=== PATIENT | female | born 1990 ===

== ENCOUNTER 2016-03-25 13:28 | Emergency (ER) | payer MEDICAID ==
[~2016-03-25] VITALS: Ht 160 cm; Wt 86.4 kg
[~2016-03-25 13:28] MED LIST: ASC500 PO; DSS100 PO; FERR89TA PO; FLE10 PO; IBUP-1152 PO; PNV1TABL57 PO; TYL325 PO; ZAN150T
[2016-03-25 13:30] VITALS: BP 122/79; PULSE 120; RESP 20; O2SAT 97
--- NOTE | 2016-03-25 13:52 | ED.REPORT ---
HPI-Dyspnea / Wheezing Date of Service Mar 25, 2016 ED Provider: Harmeet Contreras Patient is a 25 year old female who presents to the ED complaining of a productive cough onset 3 days ago that was exacerbated last night. Associated symptoms include chest pain upon coughing and deep breathing. She denies vomiting, diarrhea, dysuria, abdominal pain, or any other symptoms. She reports that she has not eaten in the past 4-5 days but is drinking some fluids. Nursing Notes Stated Complaint: CHEST PAIN/FEVER Chief Complaint: Respiratory Distress Nursing Notes Reviewed: Yes Allergies: Coded Allergies: Penicillins (Verified Allergy, Intermediate, Hives, 09/02/15) azithromycin (Verified Allergy, Intermediate, Hives, 09/02/15) amoxicillin (Verified Allergy, Unknown, Hives, 09/02/15) Scheduled Acetaminophen-Expunged Drug, Do Not Renew! (Tylenol-Expunged Drug, Do Not Renew! ) 325 Mg Tablet 325-650 MG PO Q6HP Ascorbic Acid-Expunged Drug, Do Not Renew! (Vitamin C-Expunged Drug, Do Not Renew!) 500 Mg Tablet 500 MG PO DAILYWM Cyclobenzaprine-Expunged Drug, Do Not Renew! (Flexeril-Expunged Drug, Do Not Renew!) 10 Mg Tablet 10 MG PO DAILYP FOR MUSCLE SPASM Docusate Sod-Expunged Drug, Do Not Renew! (Docusate Sod-Expunged Drug, Do Not Renew!) 100 Mg Capsule 100 MG PO BID Ferrous Fumarate-Expunged Drug, Do Not Renew! (Ferrous Fumarate-Expunged Drug, Do Not Renew!) 89 Mg Tablet 150 MG PO BID PNV CMB#95/FERROUS FUMARATE/FA-Expunged Drug, (-Expunged Drug, Do Not Renew!) 1 Each Tablet 1 EACH PO DAILY Ranitidine 150 MG Tablet (Zantac 150 MG Tablet) 150 Mg Tab 1-3XD Scheduled PRN IBUPROFEN-Expunged Drug, Do Not Renew! (IBUPROFEN-Expunged Drug, Do Not Renew!) 800 Mg Tablet 800 MG PO Q6H PRN PRN Naproxen (Naproxen) 500 Mg Tab 500 MG PO BID PRN PRN For Pain General Time Seen by MD: 13:51 Chief Complaint Cough Hx Obtained From: Patient Arrived By: Walk-in Past Medical History Past Medical History Notes: States previously healthy Past Medical History Chronic back pain Past Surgical History oral surgery Hx R arm ORIF Smoking History Never Smoker Social History Alcohol Use: Denies alcohol use Drug Use: Denies drug use Occupation lives with and kids, no work or school Ambulatory Status Independent Review of Systems Respiratory: Reports: Pleuritic pain, Prod cough, clear Cardiovascular: Reports: Chest pain (with cough) Complete sys rev & neg: except as marked. GI: Denies: Abdominal pain, Diarrhea, Vomiting Female: Denies: Dysuria Physical Exam Initial Vital Signs Vital Signs (First) Date Time Temp Pulse Resp B/P Pulse Ox O2 Delivery O2 Flow Rate FiO2 03/25/16 13:30 36.8 120 20 122/79 97 Room Air Initial VS: Reviewed Head / Eyes: Atraumatic, Normocephalic Abdomen / GI: Soft, Non-tender Skin: Warm, Dry Neurologic: Alert, Oriented, Nonfocal Psychiatric: Mood/affect normal, Behavior normal, Normal thought content General/Constitutional: Awake, Alert Distress / Hydration: Positive: Dehydration mild Neck: Full range of motion Respiratory / Chest: No respiratory distress Rhonchi in R posterior lung field. Cardiovascular: Heart rate NL, Regular rhythm, Heart sounds NL Mouth: Positive: Mucous membranes dry Interpretation & Diagnostics Lab Results Interpretation Result Diagram: 03/25/16 1445 03/25/16 1445 Test 03/25/16 14:45 White Blood Count 9.6th/mm3 (3.8-10.1) Red Blood Count 4.78mil/mm3 (3.90-5.20) Hemoglobin 13.4g/dL (12.0-15.6) Hematocrit 40.2% (35.0-46.0) Mean Corpuscular Volume 84.1fL (81-100) Mean Corpuscular Hemoglobin 28.0pg (27.0-35.0) Mean Corpuscular Hemoglobin Concent 33.3% (32.0-37.0) Red Cell Distribution Width 14.8% (12.3-15.4) Platelet Count 340bil/L (150-400) Neutrophils (%) (Auto) 76.9% (40-74) Lymphocytes (%) (Auto) 12.6% (14-46) Monocytes (%) (Auto) 9.6% (4-12) Eosinophils (%) (Auto) 0.5% (0-5) Basophils (%) (Auto) 0.2% (0-3) Sodium Level 135mEq/L (134-144) Potassium Level 3.3mEq/L (3.5-5.2) Chloride Level 99mEq/L (97-108) Carbon Dioxide Level 24mmol/L (18-29) Blood Urea Nitrogen 8mg/dL (6-20) Creatinine 0.69mg/dL (0.57-1.00) Estimat Glomerular Filtration Rate 148mL/min (>59) Glucose Level 109mg/dL (60-99) Lactic Acid Level 0.6mmol/L (0.4-2.0) Calcium Level 8.7mg/dL (8.5-10.1) Magnesium Level 2.0mg/dL (1.6-2.6) Total Bilirubin 0.7mg/dL (0.0-1.2) Aspartate Amino Transf (AST/SGOT) 21U/L (0-50) Alanine Aminotransferase (ALT/SGPT) 9U/L (0-32) Alkaline Phosphatase 62U/L (25-150) Total Protein 7.7g/dL (6.4-8.4) Albumin 3.8g/dL (3.4-5.0) Lab Results Interpretation: FLU NEG lactic acid 0.6 ECG Interpretation ECG Interpretation: sinus tachy rate 110 unchanged from prior Time: 14:39 Interpreted by: ED physician X-Ray Chest Interpretation Chest Xray Interpretation: IMPRESSION: No acute cardiopulmonary disease process. Dictated by: Negrita Yanes MD, PhD on 03/25/2016 at 14:58 Approved by: Negrita Yanes MD, PhD on 03/25/2016 at 14:58 View: AP & lat Interpretation / Wet Read by: Interpret - Radiologist Re-Eval/Medical Decision Med Decision/Clinical Course tachycardia, dry mouth, benign abd exam. Do not suspect pneumonia or influenza based on exams. Patient appears dehydrated and will receive IV fluids. Will plan to discharge her with anti-inflammatories and strict return and follow-up precautions. Re-Evaluation/Progress : Time of Eval: 14:58 Re-Evaluation/Progress Note: Rechecked patient. Discussed lab results and plan for discharge. Patient understands and agrees with plan. All questions addressed at this time. Counseled Regarding: Diagnosis, Lab results, Need for follow-up, When/why to return to ED Discharge & Departure Impression: Primary Impression: Upper respiratory infection Disposition: Home Discharge Condition All VS Reviewed: Yes Condition: Stable Patient Instructions: Upper Respiratory Infection (ED) Additional Instructions: Your x-rays negative for pneumonia and it does not appear to have influenza based on your nasal swab. Continue to stay hydrated. Use naproxen as prescribed. Call your regular doctor in the morning for repeat evaluation. Return to ER as needed for worsening symptoms. Referrals: [facility] Scribe Attestation Portions of this note were transcribed by Farzaneh Aguilera. I, Dr. Contreras personally performed the history, physical exam and medical decision-making; I reviewed and confirmed the accuracy of the information in the transcribed note. Signed by: Farzaneh Aguilera 03/25/16, 7143 copies to: [facility] Harmeet Contreras DO Mar 25, 2016 13:52 FARZANEH AGUILERA Mar 25, 2016 14:09
[2016-03-25] MEDS ORDERED: 0.9% Sodium Chloride 1,000 ML IV ONE (14:00)
[2016-03-25] MEDS ORDERED: Ondansetron 2 mg/mL 2 mL Inj IV PRN (14:00)
[2016-03-25 14:49] LABS: BASOPHILS % (AUTO) 0.2 % (0-3); EOSINOPHILS % (AUTO) 0.5 % (0-5); MONOCYTES % (AUTO) 9.6 % (4-12); Mean Corpuscular Volume 84.1 fL (81-100); NEUTROPHILS % (AUTO) 76.9 % (40-74); Platelet Count 340 bil/L (150-400)
--- NOTE | 2016-03-25 15:00 | DRSVH ---
PROCEDURE: X-RAY CHEST, TWO VIEWS ([id number]) INDICATIONS: cough TECHNIQUE: 2 views of the chest were acquired. COMPARISON: [facility], CR, CHEST 2VW, 06/01/2008, 23:15. FINDINGS: Surgical changes and devices: None. Lungs and pleura: No pleural effusions or pneumothorax. Lungs are clear. Mediastinum: Mediastinal contours are normal. Heart size is normal. Bones and chest wall: No suspicious bony abnormalities. Soft tissues appear unremarkable. IMPRESSION: No acute cardiopulmonary disease process. Dictated by: Negrita Yanes MD, PhD on 03/25/2016 at 14:58 Approved by: Negrita Yanes MD, PhD on 03/25/2016 at 14:58
[2016-03-25] MEDS ORDERED: oxyCODONE-Acetamin 5-325 mg Tablet PO ONE (15:20)
[2016-03-25] MEDS ORDERED: NPR500T PO (15:21)
[2016-03-25 15:22] VITALS: BP 106/60; PULSE 98; RESP 18; O2SAT 99
[2016-03-25 15:31] VITALS: BP 106/60; PULSE 98; RESP 18; O2SAT 99
== END 2016-03-25 15:21 | disposition home or self-care (01) ==
LOC: SED 13:28
DX: J06.9 Acute upper respiratory infection, unspecified (principal); R07.9 Chest pain, unspecified; Z88.0 Allergy status to penicillin; Z88.1 Allergy status to other antibiotic agents
CPT/HCPCS: 71020; 80053; 83605; 83735; 85025; 87804; 96361; 96374; 96375; 99285; J2405; J7030

== ENCOUNTER 2016-05-21 13:49 | Emergency (ER) | payer MEDICAID, OTHER ==
[~2016-05-21] VITALS: Ht 160 cm; Wt 86.4 kg
[~2016-05-21 13:49] MED LIST changes: +NPR500T PO
[2016-05-21 13:54] VITALS: BP 150/96; PULSE 69; RESP 18; O2SAT 97
--- NOTE | 2016-05-21 14:22 | ED.REPORT ---
HPI-Abd Pain F Under 40 Date of Service May 21, 2016 ED Provider: Virgilio Theodore MD A 25 year old female presents to the ED complaining of severe abdominal and lower back pain onset last night. She felt fine before onset. Associated symptoms include nausea and hourly vomiting. She has not taken any medication to treat the pain. She denies any fever or diarrhea. She had a BM yesterday, but none today. She reports having no sweat glands. She denies any history of appendectomy, cholecystectomy, , or any other abdominal surgery. She does not take any prescription medications or regular pain medication. She reports allergy to penicillin. Nursing Notes Stated Complaint: ABDOMINAL PAIN Chief Complaint: Female Abdominal Pain Nursing Notes Reviewed: Yes Allergies: Coded Allergies: Penicillins (Verified Allergy, Intermediate, Hives, 09/02/15) azithromycin (Verified Allergy, Intermediate, Hives, 09/02/15) amoxicillin (Verified Allergy, Unknown, Hives, 09/02/15) Scheduled Acetaminophen-Expunged Drug, Do Not Renew! (Tylenol-Expunged Drug, Do Not Renew! ) 325 Mg Tablet 325-650 MG PO Q6HP Ascorbic Acid-Expunged Drug, Do Not Renew! (Vitamin C-Expunged Drug, Do Not Renew!) 500 Mg Tablet 500 MG PO DAILYWM Cyclobenzaprine-Expunged Drug, Do Not Renew! (Flexeril-Expunged Drug, Do Not Renew!) 10 Mg Tablet 10 MG PO DAILYP FOR MUSCLE SPASM Docusate Sod-Expunged Drug, Do Not Renew! (Docusate Sod-Expunged Drug, Do Not Renew!) 100 Mg Capsule 100 MG PO BID Ferrous Fumarate-Expunged Drug, Do Not Renew! (Ferrous Fumarate-Expunged Drug, Do Not Renew!) 89 Mg Tablet 150 MG PO BID PNV CMB#95/FERROUS FUMARATE/FA-Expunged Drug, (-Expunged Drug, Do Not Renew!) 1 Each Tablet 1 EACH PO DAILY Ranitidine 150 MG Tablet (Zantac 150 MG Tablet) 150 Mg Tab 1-3XD Scheduled PRN Hydrocodone-Acetaminophen 5-325 mg (Hydrocodone-Acetaminophen 5-325 mg) 1 Each Tablet 1-2 TABLET PO Q4H PRN PRN For Pain IBUPROFEN-Expunged Drug, Do Not Renew! (IBUPROFEN-Expunged Drug, Do Not Renew!) 800 Mg Tablet 800 MG PO Q6H PRN PRN Naproxen (Naproxen) 500 Mg Tab 500 MG PO BID PRN PRN For Pain Ondansetron ODT (Zofran ODT) 4 Mg Tablet 4 MG PO Q4H PRN PRN For Nausea General Time Seen by MD: 14:20 Chief Complaint Abdominal pain Hx Obtained From: Patient Arrived By: Walk-in Sudden in Onset?: No Onset Occurred: Yesterday (Last night) Location: : Abdomen upper Severity: Current: Severe Severity: Maximum: Severe Recent Healthcare: Recent doctor visit Similar Sx Previous: No Past Medical History Past Medical History Notes: States previously healthy Past Medical History Chronic back pain Has no sweat glands. Penicillin allergy. Past Surgical History oral surgery Hx R arm ORIF Smoking History Never Smoker Social History Alcohol Use: Denies alcohol use Drug Use: Denies drug use Occupation lives with and kids, no work or school Ambulatory Status Independent Review of Systems Review of Systems Note: Lower back pain. Constitutional: Denies: Fever GI: Reports: Abdominal pain, Denies: Diarrhea Complete sys rev & neg: except as marked. Physical Exam Initial Vital Signs Vital Signs (First) Date Time Temp Pulse Resp B/P Pulse Ox O2 Delivery O2 Flow Rate FiO2 05/21/16 13:54 36.9 69 18 150/96 97 Room Air General/Constitutional: Awake, Alert Respiratory / Chest: Atraumatic, Breath sounds NL, Breath sounds = bilat, No respiratory distress, No rales, No rhonchi Cardiovascular: Heart rate NL, Regular rhythm, Heart sounds NL, No gallop, No murmurs, No rubs Tenderness/Guarding/Rebound: Positive: Tender LUQ..., Tender RUQ... Upper abdominal tenderness with some guarding. No lower abdominal tenderness. Back: Atraumatic, Full range of motion Head / Eyes: Atraumatic, Normocephalic, PERRL, EOMI ENT: Atraumatic, Airway patent, Mucous membranes moist Skin: Atraumatic, Color NL, No rash, Warm, Dry Neurologic: Oriented X3, Speech NL Neck: Atraumatic, Full range of motion Upper Extremity / MS: Atraumatic, Full range of motion Lower Extremity / Pelvis / MS: Atraumatic, Full range of motion Interpretation & Diagnostics Lab Results Interpretation Result Diagram: 05/21/16 1431 05/21/16 1431 Test 05/21/16 14:31 White Blood Count 14.4th/mm3 (3.8-10.1) Red Blood Count 5.14mil/mm3 (3.90-5.20) Hemoglobin 14.5g/dL (12.0-15.6) Hematocrit 42.8% (35.0-46.0) Mean Corpuscular Volume 83.3fL (81-100) Mean Corpuscular Hemoglobin 28.2pg (27.0-35.0) Mean Corpuscular Hemoglobin Concent 33.9% (32.0-37.0) Red Cell Distribution Width 14.7% (12.3-15.4) Platelet Count 522bil/L (150-400) Neutrophils (%) (Auto) 89.8% (40-74) Lymphocytes (%) (Auto) 6.8% (14-46) Monocytes (%) (Auto) 3.0% (4-12) Eosinophils (%) (Auto) 0% (0-5) Basophils (%) (Auto) 0.1% (0-3) Sodium Level 139mEq/L (134-144) Potassium Level 3.8mEq/L (3.5-5.2) Chloride Level 101mEq/L (97-108) Carbon Dioxide Level 24mmol/L (18-29) Blood Urea Nitrogen 5mg/dL (6-20) Creatinine 0.65mg/dL (0.57-1.00) Estimat Glomerular Filtration Rate 159mL/min (>59) Glucose Level 143mg/dL (60-99) Calcium Level 9.2mg/dL (8.5-10.1) Magnesium Level 2.0mg/dL (1.6-2.6) Total Bilirubin 0.8mg/dL (0.0-1.2) Aspartate Amino Transf (AST/SGOT) 15U/L (0-50) Alanine Aminotransferase (ALT/SGPT) 10U/L (0-32) Alkaline Phosphatase 81U/L (25-150) Total Protein 7.9g/dL (6.4-8.4) Albumin 4.6g/dL (3.4-5.0) Lipase 18U/L (13-60) Hold Rausch Top Tube Received (Received) Discharge & Departure Primary Impression: Abdominal pain Abdominal location: upper abdomen Qualified Code: R10.10 - Upper abdominal pain, unspecified Disposition: Home Patient Instructions: Acute Abdominal Pain (ED) Additional Instructions: No dangerous cause for this abdominal pain is discovered today. I suspect that you likely have some sort of a viral infection in your gut causing severe crampiness and nausea. For the next one or 2 days, I recommend ondansetron as needed for nausea and hydrocodone/APAP as needed for pain. Follow-up Saturday if not significantly improved, sooner if worse. Referrals: [facility] (PCP) Scribe Attestation Portions of this note were transcribed by Alex Guthrie and Moon De. I, , personally performed the history, physical exam, and medical decision-making: I reviewed and confirmed the accuracy for the information in the transcribed note. Signed by: Alex Guthrie and chacha Huggins, 05/21/16 1816. Virgilio Theodore MD May 21, 2016 14:22 Alex Guthrie May 21, 2016 16:36 Moon De May 21, 2016 18:22
[2016-05-21 14:34] LABS: BASOPHILS % (AUTO) 0.1 % (0-3); EOSINOPHILS % (AUTO) 0 % (0-5); Mean Corpuscular Hemoglobin 28.2 pg (27.0-35.0); Mean Corpuscular Volume 83.3 fL (81-100); NEUTROPHILS % (AUTO) 89.8 % (40-74); Platelet Count 522 bil/L (150-400)
[2016-05-21] MEDS ORDERED: HYDROcodone-APAP 5-325 mg Tablet PO ONE (15:00)
[2016-05-21] MEDS ORDERED: HYDROmorphone 0.5 mg/0.5 mL iSecure Syringe IVPUSH PRN (15:10)
[2016-05-21] MEDS ORDERED: Acetaminophen IV 1,000 MG in IV Premix 1 EACH IV ONE (15:10)
[2016-05-21] MEDS: Ondansetron 2 mg/mL 2 mL Inj IVPUSH PRN ×2 (15:19→17:18)
[2016-05-21] MEDS ORDERED: 0.9% Sodium Chloride 1,000 ML IV ONE (15:25)
[2016-05-21] MEDS ORDERED: HYDROmorphone 1 mg/mL Inj IVPUSH ONE ×2 (16:55→18:30)
--- NOTE | 2016-05-21 18:22 | DRSVH ---
PROCEDURE: CT ABDOMEN AND PELVIS WITH CONTRAST ([id number]) INDICATIONS: abd pain, upper TECHNIQUE: After the administration of intravenous contrast, 5 mm thick sections acquired from the diaphragm to the symphysis. 5 mm coronal and sagittal reformats were acquired. For radiation dose reduction, the following was used: automated exposure control, adjustment of mA and/or kV according to patient siz e. COMPARISON: None. FINDINGS: Image quality: Excellent. ABDOMEN: Lung bases: Lung bases are clear. Heart size is normal. Solid organs: Liver and spleen are normal in size and enhancement. Gallbladder negative. Biliary s ystem is non dilated. Pancreas enhances normally. No adrenal nodules. Kidneys demonstrate normal s ize and enhancement, without hydronephrosis. Peritoneum and bowel: Bowel loops demonstrate normal wall thickness and caliber. No free fluid or a ir. Appendix normal. Rectum decompressed and otherwise unremarkable. No acute diverticulitis identif ied. Nodes and vessels: No retroperitoneal or mesenteric adenopathy by size criteria. Aorta and inferior vena cava are normal in size. Miscellaneous: No ventral hernias. PELVIS: Genitourinary: The bladder decompressed otherwise unremarkable Miscellaneous: No inguinal hernias or adenopathy. Bones: No suspicious bony lesions. No vertebral body compression fractures. IMPRESSION: No acute abnormality. Normal appendix. Normal gallbladder Dictated by: Noel Irene M.D. on 05/21/2016 at 18:15 Approved by: Noel Irene M.D. on 05/21/2016 at 18:20
[2016-05-21] MEDS ORDERED: Pantoprazole 4 mg/mL 10 mL Inj IVPUSH ONE (18:30)
[2016-05-21] MEDS ORDERED: MetoCLOpramide 5 mg/mL 2 mL Inj IVPUSH ONE (18:30)
[2016-05-21] MEDS ORDERED: ONDA4TAB9 PO (18:49)
[2016-05-21] MEDS ORDERED: HYDR-4003 PO (18:49)
[2016-05-21] MEDS ORDERED: _Ondansetron ODT 4 mg Tablet PO PRN (19:20)
[2016-05-21 19:25] VITALS: BP 125/71; PULSE 87; RESP 16; O2SAT 96
== END 2016-05-21 20:05 | disposition home or self-care (01) ==
LOC: SED 13:49
DX: R10.11 Right upper quadrant pain (principal); R10.12 Left upper quadrant pain; M54.5 Low back pain; R11.2 Nausea with vomiting, unspecified; Z88.0 Allergy status to penicillin; Z88.1 Allergy status to other antibiotic agents
CPT/HCPCS: 36415; 74177; 80053; 83690; 83735; 85025; 96361; 96374; 96375; 96376; 99285; J0131; J1170; J2405; J2765; J7030; Q9967

== ENCOUNTER 2016-05-27 15:15 | Emergency (ER) | payer MEDICAID, OTHER ==
[~2016-05-27] VITALS: Ht 160 cm; Wt 86.4 kg
[~2016-05-27 15:15] MED LIST changes: +HYDR-4003 PO; +ONDA4TAB9 PO
[2016-05-27 15:21] VITALS: BP 118/80; PULSE 115; RESP 22; O2SAT 98
--- NOTE | 2016-05-27 15:47 | ED.REPORT ---
HPI-Abd Pain F Under 40 Date of Service May 27, 2016 ED Provider: Chacha Emmanuel History of Present Illness: upper abd pain since saturday. seen here and given medication. some help. has infection in stomach. Worse , movement makes it worse. Can't lay down. primary care is christianne, sergio is primary care. Saw him last week. Nursing Notes Stated Complaint: ABDOMINAL PAIN Chief Complaint: Female Abdominal Pain Nursing Notes Reviewed: Yes Allergies: Coded Allergies: Penicillins (Verified Allergy, Intermediate, Hives, 05/27/16) azithromycin (Verified Allergy, Intermediate, Hives, 05/27/16) amoxicillin (Verified Allergy, Unknown, Hives, 05/27/16) Scheduled Acetaminophen-Expunged Drug, Do Not Renew! (Tylenol-Expunged Drug, Do Not Renew! ) 325 Mg Tablet 325-650 MG PO Q6HP Ascorbic Acid-Expunged Drug, Do Not Renew! (Vitamin C-Expunged Drug, Do Not Renew!) 500 Mg Tablet 500 MG PO DAILYWM Cyclobenzaprine-Expunged Drug, Do Not Renew! (Flexeril-Expunged Drug, Do Not Renew!) 10 Mg Tablet 10 MG PO DAILYP FOR MUSCLE SPASM Docusate Sod-Expunged Drug, Do Not Renew! (Docusate Sod-Expunged Drug, Do Not Renew!) 100 Mg Capsule 100 MG PO BID Ferrous Fumarate-Expunged Drug, Do Not Renew! (Ferrous Fumarate-Expunged Drug, Do Not Renew!) 89 Mg Tablet 150 MG PO BID PNV CMB#95/FERROUS FUMARATE/FA-Expunged Drug, (-Expunged Drug, Do Not Renew!) 1 Each Tablet 1 EACH PO DAILY Ranitidine 150 MG Tablet (Zantac 150 MG Tablet) 150 Mg Tab 1-3XD Scheduled PRN Hydrocodone-Acetaminophen 5-325 mg (Hydrocodone-Acetaminophen 5-325 mg) 1 Each Tablet 1-2 TABLET PO Q4H PRN PRN For Pain IBUPROFEN-Expunged Drug, Do Not Renew! (IBUPROFEN-Expunged Drug, Do Not Renew!) 800 Mg Tablet 800 MG PO Q6H PRN PRN Naproxen (Naproxen) 500 Mg Tab 500 MG PO BID PRN PRN For Pain Ondansetron ODT (Zofran ODT) 4 Mg Tablet 4 MG PO Q4H PRN PRN For Nausea General Time Seen by MD: 15:46 Chief Complaint Abdominal pain Hx Obtained From: Patient Sudden in Onset?: No Location: : Abdomen upper Quality: Same as prior Past Medical History Past Medical History Notes: States previously healthy Past Medical History Chronic back pain Has no sweat glands. Penicillin allergy. Denies: Asthma Past Surgical History oral surgery Hx R arm ORIF Smoking History Never Smoker Social History Alcohol Use: Denies alcohol use Drug Use: Denies drug use Occupation lives with and kids, no work or school 05/27/2016 Ambulatory Status Independent Review of Systems Basic Review of Systems Eyes: Vision NL Neurologic: NL mental status, No weakness, No numbness Psychiatric: Normal thought content Physical Exam Initial Vital Signs Vital Signs (First) Date Time Temp Pulse Resp B/P Pulse Ox O2 Delivery O2 Flow Rate FiO2 05/27/16 15:21 36.6 115 22 118/80 98 Room Air Initial VS: Reviewed, Vital signs normal Head / Eyes: Atraumatic, Normocephalic, PERRL ENT: Mucous membranes moist, Conjunctiva normal, No scleral icterus Neck: Supple, Non-tender, Full range of motion Lymphatic: No lymphadenopathy Extremities: Vascular intact, Neuro intact, No swelling, No tenderness Skin: Warm, Dry, No cyanosis Neurologic: Alert, Oriented, Nonfocal Psychiatric: Mood/affect normal, Behavior normal, Normal thought content General/Constitutional: Awake, Alert, No acute distress, Well appearing, Well developed, Well hydrated, Well nourished, Cooperative, Not toxic appearing Respiratory / Chest: Atraumatic, Breath sounds NL, Breath sounds = bilat Cardiovascular: Heart rate NL, Regular rhythm, Heart sounds NL, No gallop, No murmurs, No rubs Abdomen: Atraumatic, Soft, Non-tender, McBurney's non-tender, No guarding, No rebound, BS normoactive patient indicates upper abd area of discomfort. Back: Atraumatic, Inspection NL, Full range of motion, Painless range of motion Interpretation & Diagnostics Lab Results Interpretation Result Diagram: 05/27/16 1625 05/27/16 1625 Test 05/27/16 16:25 White Blood Count 15.8th/mm3 (3.8-10.1) Red Blood Count 4.98mil/mm3 (3.90-5.20) Hemoglobin 14.2g/dL (12.0-15.6) Hematocrit 42.7% (35.0-46.0) Mean Corpuscular Volume 85.7fL (81-100) Mean Corpuscular Hemoglobin 28.5pg (27.0-35.0) Mean Corpuscular Hemoglobin Concent 33.3% (32.0-37.0) Red Cell Distribution Width 15.0% (12.3-15.4) Platelet Count 461bil/L (150-400) Neutrophils (%) (Auto) 88.3% (40-74) Lymphocytes (%) (Auto) 5.2% (14-46) Monocytes (%) (Auto) 4.9% (4-12) Eosinophils (%) (Auto) 1.2% (0-5) Basophils (%) (Auto) 0.1% (0-3) Sodium Level 141mEq/L (134-144) Potassium Level 3.8mEq/L (3.5-5.2) Chloride Level 104mEq/L (97-108) Carbon Dioxide Level 23mmol/L (18-29) Blood Urea Nitrogen 7mg/dL (6-20) Creatinine 0.66mg/dL (0.57-1.00) Estimat Glomerular Filtration Rate 156mL/min (>59) Glucose Level 100mg/dL (60-99) Calcium Level 8.9mg/dL (8.5-10.1) Total Bilirubin 1.2mg/dL (0.0-1.2) Aspartate Amino Transf (AST/SGOT) 14U/L (0-50) Alanine Aminotransferase (ALT/SGPT) 10U/L (0-32) Alkaline Phosphatase 76U/L (25-150) Total Protein 7.5g/dL (6.4-8.4) Albumin 4.1g/dL (3.4-5.0) Amylase Level 48U/L (28-100) Lipase 27U/L (13-60) US Focused Biliary INDICATIONS: 25-year-old female with right upper quadrant abdominal pain. TECHNIQUE: Real-time focused scanning was performed of the abdomen, with image documentation. COMPARISON: [facility], CT, CT ABD PELVIS W CON, 05/21/2016, 17:59. FINDINGS: Multiple dependent shadowing gallstones are present. Gallbladder wall thickness is still normal at 2.7 mm. No pericholecystic fluid or sonographic Rose sign. The extrahepatic bile duct is nondilated at 4.4 mm. IMPRESSION: Cholelithiasis, without sonographic evidence for acute cholecystitis. Re-Eval/Medical Decision Med Decision/Clinical Course Med Decision/Clinical Course: Discussed with patient no life threatening cause of abd pain is identified. Encouraged follow up with primary care. CT with contrast done last week did not reveal any answers. Discharge & Departure Primary Impression: Abdominal pain Abdominal location: upper abdomen Qualified Code: R10.10 - Upper abdominal pain, unspecified Disposition: Home Patient Instructions: Acute Abdominal Pain (ED), Low Fat Diet (ED) Additional Instructions: The ultrasound does show that you have gall stones in your gall bladder. The wall is not thickened nor are any stones impacted. Your amylase and lipase are normal. You may benefit from seeing a surgeon to see if this could be the cause of your pain. As this time I am not able to identify any life threatening cause of your pain. Please follow with primary care. You may also benefit from following a low fat diet, one is enclosed for you. Also Omeprazole may be helpful, start this daily. A small amount of hydrocodone is being provided. #6 Referrals: Mookie Pope MD (PCP) EDSupervising Provider for APC: Virgilio Theodore MD copies to: Mookie Pope MD, Sue ARNP May 27, 2016 15:47
[2016-05-27] MEDS ORDERED: Ondansetron 2 mg/mL 2 mL Inj IVPUSH ONE (16:00)
[2016-05-27] MEDS ORDERED: 0.9% Sodium Chloride 1,000 ML IV ONE (16:00)
[2016-05-27 16:46] LABS: BASOPHILS % (AUTO) 0.1 % (0-3); EOSINOPHILS % (AUTO) 1.2 % (0-5); MONOCYTES % (AUTO) 4.9 % (4-12); Mean Corpuscular Hemoglobin 28.5 pg (27.0-35.0); Mean Corpuscular Volume 85.7 fL (81-100); NEUTROPHILS % (AUTO) 88.3 % (40-74); Platelet Count 461 bil/L (150-400)
--- NOTE | 2016-05-27 17:30 | DRSVH ---
PROCEDURE: US ABDOMEN, LIMITED ([id number]) INDICATIONS: 25-year-old female with right upper quadrant abdominal pain. TECHNIQUE: Real-time focused scanning was performed of the abdomen, with image documentation. COMPARISON: [facility], CT, CT ABD PELVIS W CON, 05/21/2016, 17:59. FINDINGS: Multiple dependent shadowing gallstones are present. Gallbladder wall thickness is still normal at 2.7 mm. No pericholecystic fluid or sonographic Rose sign. The extrahepatic bile duct i s nondilated at 4.4 mm. IMPRESSION: Cholelithiasis, without sonographic evidence for acute cholecystitis. Dictated by: Thuan Leung M.D. on 05/27/2016 at 17:28 Approved by: Thuan Leung M.D. on 05/27/2016 at 17:29
== END 2016-05-27 17:49 | disposition home or self-care (01) ==
LOC: SED 15:15
DX: R10.10 Upper abdominal pain, unspecified (principal); Z88.0 Allergy status to penicillin; Z88.1 Allergy status to other antibiotic agents
CPT/HCPCS: 36415; 76705; 80053; 82150; 83690; 85025; 96361; 96374; 96375; 99285; J2405; J7030

== ENCOUNTER 2016-06-24 17:15 | Emergency (ER) | payer MEDICAID, OTHER ==
[2016-06-24 17:20] VITALS: BP 127/80; PULSE 53; O2SAT 97
[2016-06-24] MEDS ORDERED: 0.9% Sodium Chloride 1,000 ML IV ONE ×2 (17:33→18:30)
--- NOTE | 2016-06-24 17:33 | ED.REPORT ---
HPI-General Illness Date of Service Jun 24, 2016 ED Provider: Salvador Saldana MD Pt is a 25 y/o female w/ a hx of chronic back pain presenting to the ED with her c/o diffuse upper abdominal pain onset 11:00 today. This is her 3rd visit for similar pain and previous visits have elicited no definitive diagnosis. CT scan was normal. It has been found that she has gallstones. She drinks about 1/2 gallon of vodka every 2 days. Pt c/o associated nausea, vomiting. She denies fever, chills, dysuria, CP, SOB, diarrhea, hematemesis. She denies excessive THC use. Nursing Notes Stated Complaint: ABDOMINAL PAIN, VOMITING Chief Complaint: Female Abdominal Pain Nursing Notes Reviewed: Yes Allergies: Coded Allergies: Penicillins (Verified Allergy, Intermediate, Hives, 05/27/16) azithromycin (Verified Allergy, Intermediate, Hives, 05/27/16) amoxicillin (Verified Allergy, Unknown, Hives, 05/27/16) Scheduled Acetaminophen-Expunged Drug, Do Not Renew! (Tylenol-Expunged Drug, Do Not Renew! ) 325 Mg Tablet 325-650 MG PO Q6HP Ascorbic Acid-Expunged Drug, Do Not Renew! (Vitamin C-Expunged Drug, Do Not Renew!) 500 Mg Tablet 500 MG PO DAILYWM Cyclobenzaprine-Expunged Drug, Do Not Renew! (Flexeril-Expunged Drug, Do Not Renew!) 10 Mg Tablet 10 MG PO DAILYP FOR MUSCLE SPASM Docusate Sod-Expunged Drug, Do Not Renew! (Docusate Sod-Expunged Drug, Do Not Renew!) 100 Mg Capsule 100 MG PO BID Ferrous Fumarate-Expunged Drug, Do Not Renew! (Ferrous Fumarate-Expunged Drug, Do Not Renew!) 89 Mg Tablet 150 MG PO BID PNV CMB#95/FERROUS FUMARATE/FA-Expunged Drug, (-Expunged Drug, Do Not Renew!) 1 Each Tablet 1 EACH PO DAILY Ranitidine 150 MG Tablet (Zantac 150 MG Tablet) 150 Mg Tab 1-3XD Scheduled PRN Hydrocodone-Acetaminophen 5-325 mg (Hydrocodone-Acetaminophen 5-325 mg) 1 Each Tablet 1-2 TABLET PO Q4H PRN PRN For Pain IBUPROFEN-Expunged Drug, Do Not Renew! (IBUPROFEN-Expunged Drug, Do Not Renew!) 800 Mg Tablet 800 MG PO Q6H PRN PRN Naproxen (Naproxen) 500 Mg Tab 500 MG PO BID PRN PRN For Pain Ondansetron ODT (Zofran ODT) 4 Mg Tablet 4 MG PO Q4H PRN PRN For Nausea General Time Seen by MD: 17:32 Chief Complaint Abdominal pain Hx Obtained From: Patient Arrived By: Walk-in Sudden in Onset?: No Onset Occurred: 5 - 8 hours ago Symptom Duration: Since onset Location: : Abdomen Quality: Painful Radiation: : Does not radiate Severity: Current: Moderate Severity: Maximum: Moderate Past Medical History Past Medical History Notes: States previously healthy Past Medical History Chronic back pain Has no sweat glands. Penicillin allergy. Past Surgical History oral surgery Hx R arm ORIF Smoking History Never Smoker Social History Alcohol Use: Denies alcohol use Drug Use: Denies drug use Occupation lives with and kids, no work or school 05/27/2016 Ambulatory Status Independent Review of Systems Full Review of Systems Constitutional: Denies: Chills, Fever Respiratory: Denies: Non-productive cough, Shortness of breath Cardiovascular: Denies: Chest pain, Dyspnea on exertion GI: Reports: Abdominal pain, Nausea, Vomiting Complete sys rev & neg: except as marked. Physical Exam Vital Signs Vital Signs Date Time Temp Pulse Resp B/P Pulse Ox O2 Delivery O2 Flow Rate FiO2 06/24/16 19:56 36.9 52 14 130/85 99 Room Air 06/24/16 17:20 36 53 127/80 97 Room Air Initial VS: Reviewed, Vital signs normal Head / Eyes: Atraumatic, Normocephalic, PERRL ENT: Mucous membranes moist, Conjunctiva normal, No scleral icterus Neck: Supple, Full range of motion Respiratory: Breath sounds normal, Clear to auscultation, No respiratory distress Cardiovascular: Regular rate & rhythm, Heart sounds normal, Intact distal pulses Extremities: Vascular intact, Neuro intact, No swelling, No tenderness Skin: Warm, Dry, No cyanosis Neurologic: Alert, Oriented, Nonfocal Psychiatric: Mood/affect normal, Behavior normal, Normal thought content General/Constitutional: Awake, Alert, Cooperative, Not toxic appearing Distress / Hydration: Positive: Distress mild Writhing around groaning in pain, similar to last exacerbation of pain Appears older than stated age Abdomen: Atraumatic, Soft, No guarding, No rebound, No distention, No palpable mass Tolerates firm palpation in all 4 quadrants Diffuse abdominal tenderness Bilious appearing emesis in emesis bag, no signs of blood Interpretation & Diagnostics Lab Results Interpretation Result Diagram: 06/24/16 1736 06/24/16 1736 Test 06/24/16 17:36 06/24/16 20:12 White Blood Count 13.7th/mm3 (3.8-10.1) Red Blood Count 4.93mil/mm3 (3.90-5.20) Hemoglobin 14.2g/dL (12.0-15.6) Hematocrit 41.7% (35.0-46.0) Mean Corpuscular Volume 84.6fL (81-100) Mean Corpuscular Hemoglobin 28.8pg (27.0-35.0) Mean Corpuscular Hemoglobin Concent 34.1% (32.0-37.0) Red Cell Distribution Width 14.2% (12.3-15.4) Platelet Count 521bil/L (150-400) Neutrophils (%) (Auto) 86.4% (40-74) Lymphocytes (%) (Auto) 11.5% (14-46) Monocytes (%) (Auto) 1.8% (4-12) Eosinophils (%) (Auto) 0% (0-5) Basophils (%) (Auto) 0.2% (0-3) Sodium Level 136mEq/L (134-144) Potassium Level 4.4mEq/L (3.5-5.2) Chloride Level 103mEq/L (97-108) Carbon Dioxide Level 13mmol/L (18-29) Blood Urea Nitrogen 7mg/dL (6-20) Creatinine 0.56mg/dL (0.57-1.00) Estimat Glomerular Filtration Rate 189mL/min (>59) Glucose Level 131mg/dL (60-99) Calcium Level 9.5mg/dL (8.5-10.1) Magnesium Level 2.0mg/dL (1.6-2.6) Total Bilirubin 1.2mg/dL (0.0-1.2) Aspartate Amino Transf (AST/SGOT) 26U/L (0-50) Alanine Aminotransferase (ALT/SGPT) 11U/L (0-32) Alkaline Phosphatase 77U/L (25-150) Total Protein 8.2g/dL (6.4-8.4) Albumin 4.0g/dL (3.4-5.0) Lipase 25U/L (13-60) Human Chorionic Gonadotropin, Qual Negative (Negative) Hold Urine Received (Received) Re-Eval/Medical Decision Med Decision/Clinical Course Pt is a 25 y/o female w/ a hx of chronic back pain presenting to the ED with her c/o diffuse upper abdominal pain onset 11:00 today. This is her 3rd visit for similar pain and previous visits have elicited no definitive diagnosis. CT scan was normal. It has been found that she has gallstones. She drinks about 1/2 gallon of vodka every 2 days. Pt c/o associated nausea, vomiting. She denies fever, chills, dysuria, CP, SOB, diarrhea, hematemesis. She denies excessive THC use. Upon arrival the patient is quite agitated, moaning and repeatedly asking for IV pain medication. That being said her vital signs are stable and she is afebrile. She is quite distractible and tolerates firm palpation in all 4 quadrants of her abdomen without any guarding, rigidity or rebound. Her emesis is without bloody appearance. Labs notable as below: CBC: Borderline leukocytosis of 13.7 otherwise unremarkable CMP: unremarkable Lipase negative negative I conducted extensive chart review on this patient and while I would generally obtain CT imaging on the patient complaining of this level abdominal pain she has had multiple prior similar presentations with extensive workup including imaging which has been unrevealing. Given that this presentation is identical to prior I feel that repeating CT imaging studies will be of little benefit. She did have prior ultrasound demonstrates gallstones there was no evidence of cholecystitis and her presentation today is unconvincing for acute biliary etiology. Given her extensive alcohol use I considered acute appendicitis however her lipase is within normal limits. On serial abdominal examinations she had no guarding or peritoneal findings about the epigastrium or remainder of the abdomen suggestive of perforated ulcer. The pain is not suggestive of peptic ulcer disease. She was initially treated with IV fluids and Zofran and had little symptom improvement. Given her level of agitation and a clinical picture which appears more and more consistent with a cyclical vomiting syndrome I opted to treat her with 3 mg of IV Haldol and 25 mg of IV Benadryl and this resulted in excellent symptom resolution. She was sleepy she was able to wake up and participate in exams and serial abdominal examinations remained completely benign. I feel that she would benefit from evaluation by a GI specialist and she has been referred to one. At this time after discussing the plan with patient and they feel comfortable with her going home.Prior to discharge follow-up and return precautions were reviewed in detail with the patient who verbalized understanding and agreement with the plan. The patient was discharged in stable condition. Time of Eval: 19:40 Re-Evaluation/Progress Note: Pt rechecked. Sleeping comfortably. No abdominal pain. Time of Eval: 20:35 Re-Evaluation/Progress Note: Pt rechecked. Informed pt of plan for treatment. Pt understands and agrees with plan for treatment. F/U instructions and RTER warnings given. All questions addressed. Counseled Regarding: Diagnosis, Lab results, Need for follow-up, When/why to return to ED Discharge & Departure Primary Impression: Abdominal pain Abdominal location: generalized Qualified Code: R10.84 - Generalized abdominal pain Additional Impressions: Cyclical vomiting Vomiting Intractability: unspecified Nausea presence: unspecified Qualified Code: G43.A0 - Cyclical vomiting, not intractable Dehydration Alcohol abuse Disposition: Home Discharge Condition All VS Reviewed: Yes Condition: Stable Patient Instructions: Acute Abdominal Pain (ED) Additional Instructions: Thank you for seeking care at the emergency room. It is difficult for us to make definitive diagnoses in the ED but we believe that you are experiencing [id number] abdominal pain. Our primary goal today in the ED was to evaluate you for any life-threatening conditions. Your evaluation was reassuring. Take 600 mg Ibuprofen every 6 hours as needed for pain. You should follow-up with a gastrointestinal doctor next week. One has been referred to you. You should return to the ED immediately if you develop high fevers, intractable vomiting, lightheadedness, weakness or any other concerning signs or symptoms. Thank you for letting us partake in your care today. Referrals: Mookie Pope MD (PCP) Wesly Nguyễn MD Scribe Attestation Portions of this note were transcribed by Pranav Vargas. IDr. Saldana personally performed the history, physical exam and medical decision-making; I reviewed and confirmed the accuracy of the information in the transcribed note. Signed by Lázaro Overton, 06/24/16 - 0 copies to: Mookie Pope MD, Beck O MD Jun 24, 2016 17:33 PRANAV VARGAS Jun 24, 2016 18:25
[2016-06-24] MEDS ORDERED: Ondansetron 2 mg/mL 2 mL Inj IVPUSH ONE (17:35)
[2016-06-24 17:47] LABS: BASOPHILS % (AUTO) 0.2 % (0-3); EOSINOPHILS % (AUTO) 0 % (0-5); MONOCYTES % (AUTO) 1.8 % (4-12); Mean Corpuscular Hemoglobin 28.8 pg (27.0-35.0); Mean Corpuscular Volume 84.6 fL (81-100); NEUTROPHILS % (AUTO) 86.4 % (40-74); Platelet Count 521 bil/L (150-400)
[2016-06-24 18:18] LABS: Lipase 25 U/L (13-60)
[2016-06-24] MEDS ORDERED: Haloperidol 5 mg/mL Inj IVPUSH ONE (18:30)
[2016-06-24 19:56] VITALS: BP 130/85; PULSE 52; RESP 14; O2SAT 99
[2016-06-24] MEDS ORDERED: IBUP-1827 PO (20:51)
[2016-06-24 20:54] VITALS: BP 119/86; PULSE 54; RESP 16; O2SAT 98
== END 2016-06-24 20:52 | disposition home or self-care (01) ==
LOC: SED 17:15
DX: R10.84 Generalized abdominal pain (principal); G43.A0 Cyclical vomiting, in migraine, not intractable; E86.0 Dehydration; F10.20 Alcohol dependence, uncomplicated; M54.9 Dorsalgia, unspecified; G89.29 Other chronic pain; K80.20 Calculus of gallbladder without cholecystitis without obstruction; Z88.0 Allergy status to penicillin; Z88.1 Allergy status to other antibiotic agents
CPT/HCPCS: 36415; 80053; 81025; 83690; 83735; 84703; 85025; 96361; 96374; 96375; 99285; J1200; J1630; J2405; J7030